=== PATIENT | male | born 1980 | race Hispanic/Latino ===

== ENCOUNTER 2018-12-15 17:31 | Emergency (ER) | payer SELFPAY ==
[2018-12-15] MEDS ORDERED: KETOROLAC TROMETHAMINE 60 MG/2 ML VIAL ONE (17:43)
[2018-12-15] MEDS ORDERED: DIAZEPAM 5 MG TABLET ONE (17:43)
[2018-12-15] MEDS ORDERED: LIDOCAINE 5% TOPICAL PATCH TP ONE (17:43)
== END 2018-12-15 18:58 | disposition home or self-care (01) ==
LOC: EDH 17:31
DX: M54.16 Radiculopathy, lumbar region (principal); Z98.890 Other specified postprocedural states
CPT/HCPCS: 96372; 99283; J1885